=== PATIENT | male | born 1945 | race Caucasian/White ===

== ENCOUNTER → 2016-05-08 | Outpatient (CLI) | payer OTHER ==
[~2016-05-08] MED LIST: BTH25 PO; EXFORGE PO; FLM4 PO; LOVA20TA4 PO; METO100T14 PO; MULT-506 PO; NITR-5 PO; PRLSR20 PO
== END | disposition home or self-care (01) ==
LOC: C.LABMFLN 08:56
PROVIDERS: ATTEND Urology
DX: N39.0 Urinary tract infection, site not specified (principal)

== ENCOUNTER → 2016-11-20 | Outpatient (CLI) | payer OTHER | END | disposition home or self-care (01) | LOC: C.LABMFLN 10:56 | PROVIDERS: ATTEND Urology | DX: N32.0 Bladder-neck obstruction (principal) ==

== ENCOUNTER → 2017-11-27 | Outpatient (CLI) | payer OTHER | END | disposition home or self-care (01) | LOC: C.LABMFLN 13:21 | PROVIDERS: ATTEND Urology | DX: N32.0 Bladder-neck obstruction (principal); M19.90 Unspecified osteoarthritis, unspecified site ==

== ENCOUNTER 2020-07-11 05:45 | Inpatient (IN) ==
--- NOTE | 2020-06-26 14:33 | PAT Medication Instructions ---
Medication Instructions Date of Service June 26, 2020 Home Medications apixaban 5 mg tablet 5 mg PO BID beclomethasone dipropionate 40 mcg/actuation nasal HFA inhaler 2 sprays INTNAS DAILY PRN bethanechol chloride 50 mg tablet 50 mg PO QID furosemide 20 mg tablet 20 mg PO QAM omeprazole 40 mg capsule,delayed release 40 mg PO QAM diltiazem HCl 240 mg PO QAM lisinopril 10 mg PO QPM tamsulosin 0.4 mg PO PM ASK your prescriber and surgeon apixaban 5 mg tablet 5 mg PO BID DO NOT take the morning of surgery bethanechol chloride 50 mg tablet 50 mg PO QID furosemide 20 mg tablet 20 mg PO QAM Take morning of surgery With a small sip of water, OTHERWISE NOTHING TO EAT OR DRINK AFTER MIDNIGHT: beclomethasone dipropionate 40 mcg/actuation nasal HFA inhaler 2 sprays INTNAS DAILY PRN (if needed) omeprazole 40 mg capsule,delayed release 40 mg PO QAM diltiazem HCl 240 mg PO QAM Take evening before surgery beclomethasone dipropionate 40 mcg/actuation nasal HFA inhaler 2 sprays INTNAS DAILY PRN (if needed) bethanechol chloride 50 mg tablet 50 mg PO QID lisinopril 10 mg PO QPM tamsulosin 0.4 mg PO PM Other Notes If you have any questions please call us at [phone] or [phone] or [phone] or [phone]
--- NOTE | 2020-06-28 11:16 | Anesthesiology Consultation ---
Date of Service June 28, 2020 Assessment & Plan (1) Encounter for pre-operative examination: - Per assessment on 06/28: Travel screen negative. No known COVID-19 positive contacts or current COVID-19 related symptoms. Surgeon arranging preop COVID te sting. Awaiting results. - Cardiology office visit: 05/11/20: "pAF (last episode 04/2019) previously on amiodarone (July 2019-Feb 2020) started on diltiazem but stopped due to tremors; on Eliquis [id number] 2 (age, HTN) (previously on sotalol looks like only briefly (04/2019-07/2019 stopped due to episode of atrial flutter)-as per pt it did not work; h/o ZACHARY guided DCCV in 2015)..-Ok to take an extra dose diltiazem if he finds himself in AF.. If his BP starts getting too low then would cut the lisinopril in half.. If he has further symptomatic episodes of AF would consider going back on sotalol; I would not say he failed sotalol only being on it for 3 months.. Continue for now diltiazem, ACEI, lasix and eliquis" F/U 6 months recommended. - Cardiology note: 06/08/20: "OK to hold Eliquis 2 days before the procedure and then ideally restart the day after the procedure" Chart Review Chart Review: Acceptable Risk for Surgery and Patient seen in Pre Admission Testing Teaching & Discussion Pre-Anesthesia Teaching/Discussion Notes: Instructed NPO after midnight before surgery,except medications with 15 cc of water. Medication instructions provided according to the PAT guidelines. History Surgery Operation Date: 07/11/20 07:30 Proposed Procedures p Open Bladder Diverticulectomy (2nd) - Carlo Cho MD s Cystoscopy Left Ureteral Stent Insertion Placement (1st) - Carlo Cho MD Height/Weight Height: 5 ft 8 in Weight: 72.3 kg Allergies Allergy/AdvReac Type Severity Reaction Status Date / Time hydrochlorothiazide Allergy Mild Unknown Verified 06/12/20 07:32 latex Allergy Unknown Localized Verified 06/27/20 15:52 rash, skin irritation Antihistamines - Alkylamine AdvReac Mild Urinary Verified 06/27/20 15:52 retention amiodarone AdvReac Unknown Night Verified 06/27/20 15:52 sweating, tremors Medications Home Medications Medication Instructions Recorded Confirmed Last Taken apixaban 5 mg tablet 5 mg PO BID 09/28/19 06/12/20 05/27/20 09:00 beclomethasone dipropionate 40 2 sprays INTNAS DAILY PRN gm 09/28/19 06/12/20 Unknown mcg/actuation nasal HFA inhaler bethanechol chloride 50 mg tablet 50 mg PO QID tab 09/28/19 06/12/20 05/27/20 09:00 furosemide 20 mg tablet 20 mg PO QAM 09/28/19 06/12/20 05/27/20 omeprazole 40 mg capsule,delayed 40 mg PO QAM 09/28/19 06/12/20 05/27/20 release diltiazem HCl 240 mg PO QAM 05/27/20 06/12/20 05/27/20 lisinopril 10 mg PO QPM 05/27/20 06/12/20 05/26/20 tamsulosin 0.4 mg PO PM 06/12/20 06/12/20 Unknown Past Medical History Medical History (Updated 06/28/20 @ 14:04 by Alexandria Motley) Anemia Arthritis Atrial fibrillation paroxysmal, on Eliquis, follows with [facility] cardiology Bladder diverticulum BPH (benign prostatic hyperplasia) Chronic ITP (idiopathic thrombocytopenia) Stable, under surveillance by [facility] hematology Diastolic CHF, chronic GERD (gastroesophageal reflux disease) controlled Hyperlipidemia Hypertension Incomplete emptying of bladder due to benign prostatic hyperplasia Exercise / Class Metabolic Activity III < 4 Walking/Shop/Light housework Past Family History Family History Brother Prostate cancer Other Heart disease Hypertension Non Hodgkin's lymphoma Pancreatic cancer Past Surgical History Surgical History History of cholecystectomy History of colonoscopy History of esophagogastroduodenoscopy (EGD) History of tooth extraction All upper History of transurethral resection of prostate Hx of cataract surgery R/L Hx of hernia repair Hx of surgical procedure LUE cyst removal (50 years ago > benign) Past Anesthesia History No Hx of Anesthesia Complications (except PONV) and No Family Hx of Anesthesia Complications History of PONV No Hx of Motion Sickness and History of PONV (significant improvement when pretreatment is used) Social History Smoking Status: Never smoker Do You Dip or Chew Tobacco: No Hx Alcohol Use: No Hx Substance Use: No substance use type: does not use Review of Systems Rare snoring. Patient denies chest pain, shortness of breath, fever, chills, cough, wheezing, palpitations. Physical Exam Vital Signs VITALS BP 134/66 P 73 TEMP 97.5 SP02 98%RA RESP 16 PHYSICAL Full neck and c-spine range of motion. Full TMJ range of motion. TMD 3.5 finger breaths Mallampati Score 3 Dentition: upper full dentures Lungs: clear throughout to auscultation Cardiac: regular rate and rhythm, I-II/ systolic murmur Spine: normal Carotid arteries: negative bruit Extremities: no edema Testing Laboratory Results 06/28/20 11:49 06/28/20 11:45 Blood Type O Negative 06/28/20 11:49 Antibody Screen NEGATIVE 06/28/20 11:49 Electrocardiogram Date: 05/11/20 Normal sinus rhythm at 71 bpm. Inferior infarct (cited on or before 05/11/2020 per manager billing review). Cannot rule out anterior infarct, age undetermined. No significant change from 10/29/2019 per manager billing review. (Hx possible inferior infarct, cannot r/o anterior infarct noted on 05/03/19 ekg, echo done 05/04/19). Chest X-Ray Date: 06/28/20 FINDINGS: PA and lateral chest radiographs are compared to study dated 09/10/2010. The heart is top normal for projection noting atherosclerotic calci fication of the thoracic aorta. The pulmonary vasculature is noncongested. Chronic interstitial thickening is similar to previous. There is mild bibasilar scarring/atelectasis. No airspace consolidation or pleural effusion is identified. There is no pneumothorax. The skeletal structures are osteopenic. The bony thorax appears intact. Surgical clips are noted in the upper abdomen. IMPRESSION: No active disease in the chest. Echocardiogram Date: 05/04/19 LVEF 56%. No regional wall motion abnormality. Nondilated cardiac chambers. Trace to mild MR. RVSP is normal. Estimated PASP 28 mmHg. Stress Test Date: 02/07/16 Type: DSE DSE normal without wall motion abnormalities or inducible ischemia. 94% MPHR. No significant arrhythmias. Grade 1 diastolic dysfunction. Mild TR. Grade I DD. Other Testing Chest/Abdomen/Pelvis CT: 05/14/20: No acute finding. Lungs are clear. Extensive coronary artery and aortic valve calcification. There is a slight delayed right renal nephrogram caused by moderate right hydroureteronephrosis of uncertain etiology. Again seen is a markedly distended urinary bladder with presumably a large and markedly distended left-sided diverticulum. 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 > Recommend Baez catheterization and then repeat CT abdomen and pelvis using the CT urogram prot ocol.
[2020-06-28 12:33] LABS: Hematocrit (blood only) 36.2 % (42-52); Hemoglobin 11.9 g/dL (14.0-18.0); Mean Corpuscular Hemoglobin 30.5 pg (25-34); Mean Corpuscular Hgb Conc 32.9 g/dL (32-36); Mean Corpuscular Volume 92.8 fL (80-100); Mean Platelet Volume 13.1 fL (7.4-10.4); Platelet Count 125 K/uL (130-400); RDW Coefficient of Variation 14.7 % (11.5-14.5); RDW Standard Deviation 49.6 fL (36.4-46.3); White Blood Count 10.45 K/uL (4.8-10.8)
[2020-06-28 12:34] LABS: Basophils # (auto) 0.01 K/uL (0-0.2); Basophils % (auto) 0.1 %; Eosinophils # (auto) 0.03 K/uL (0-0.5); Eosinophils % (auto) 0.3 %; Immature Granulocytes # (auto) 0.04 K/uL (0.00-0.02); Immature Granulocytes % (auto) 0.4 %; Lymphocytes # (auto) 2.31 K/uL (1.2-3.4); Lymphocytes % (auto) 22.1 %; Monocytes # (auto) 2.01 K/uL (0.11-0.59); Monocytes % (auto) 19.2 %; Neutrophils # (auto) 6.05 K/uL (1.4-6.5); Neutrophils % (auto) 57.9 %; Platelet Estimate Decreased (Normal)
--- NOTE | 2020-06-28 12:35 | XRay Report ---
TWO VIEW CHEST CLINICAL HISTORY: Preoperative examination. FINDINGS: PA and lateral chest radiographs are compared to study dated 09/10/2010. The heart is top no rmal for projection noting atherosclerotic calcification of the thoracic aorta. The pulmonary vascula ture is noncongested. Chronic interstitial thickening is similar to previous. There is mild bibasilar scarring/atelectasis. No airspace consolidation or pleural effusion is identified. There is no pneum othorax. The skeletal structures are osteopenic. The bony thorax appears intact. Surgical clips are n oted in the upper abdomen. IMPRESSION: No active disease in the chest. ACT 112: Negative or not required by law. Electronically signed by: Bridger Acevedo M.D. 06/28/2020 12:33 PM
[2020-06-28 14:27] LABS: BUN Creatinine Ratio 24.3 (10-20); Calcium 8.9 mg/dl (8.5-10.1); Creatinine Clr Calc Pharmacy 62.4 ml/min; Est GFR (Non-African American) 74.2; Potassium 4.1 mmol/L (3.5-5.1)
[2020-07-11] MEDS ORDERED: LR 15ML/HR IV SCH (06:00)
[2020-07-11] MEDS ORDERED: GENTAMICIN SULFATE 160 MG in DEXTROSE 5% 100 ML IV SCH (06:00)
[2020-07-11] MEDS ORDERED: LIDOCAINE HCL 2% 2 ML VIAL/AMP(20MG/ML) INFIL ONE (06:48)
[2020-07-11] MEDS ORDERED: PROPOFOL IV EMULSION 10 MG/ML 20 ML VIAL IV ONE (06:48)
[2020-07-11] MEDS ORDERED: ROCURONIUM BROMIDE 10 MG/ML 5 ML VIAL IV ONE ×3 (06:48→11:51)
[2020-07-11] MEDS ORDERED: ONDANSETRON INJ 2 MG/ML 2 ML VIAL ONE ×2 (06:48→11:47)
[2020-07-11] MEDS ORDERED: MIDAZOLAM HCL 1 MG/ML 2ML VIAL ONE (06:48)
[2020-07-11] MEDS ORDERED: fentaNYL citrate 100 MCG/2 ML VIAL ONE ×2 (06:48→12:09)
[2020-07-11] MEDS ORDERED: fentaNYL citrate 100 MCG/2 ML VIAL IV PRN (07:26)
[2020-07-11] MEDS ORDERED: ePHEDrine sulfate 50 MG/ML AMP IV PRN (07:26)
[2020-07-11] MEDS ORDERED: PROMETHAZINE HCL 6.25 MG in SODIUM CHLORIDE 0.9% 50 ML IV PRN (07:26)
[2020-07-11] MEDS ORDERED: ONDANSETRON INJ 2 MG/ML 2 ML VIAL IV PRN ×2 (07:26→13:33)
[2020-07-11] MEDS ORDERED: ATROPINE SULFATE 0.1 MG/ML 10ML SYR IV PRN (07:26)
--- NOTE | 2020-07-11 07:35 | History & Physical Bridge Note ---
Date of Service July 11, 2020 History & Physical Bridge Note I have examined the patient, reviewed the History & Physical and in the interval since the performance of the History & Physical I have noted the following changes of clinical significance: no changes noted
[2020-07-11] MEDS ORDERED: GENTAMICIN SULFATE 40 MG/ML 2 ML VIAL ONE (08:47)
[2020-07-11] MEDS ORDERED: BUPIVACAINE 0.5 % 5 MG/1 ML MPF 30ML VIAL ONE (08:48)
[2020-07-11] MEDS ORDERED: DEXAMETHASONE SOD INJ 4 MG/ML VIAL ONE (09:17)
[2020-07-11] MEDS ORDERED: METHYLENE BLUE 0.5% 10 ML VIAL ONE (09:25)
--- NOTE | 2020-07-11 09:48 | Fluoroscopy Report ---
FL retrograde includes kub CLINICAL HISTORY: LEFT STENT INSERTION COMPARISON STUDY: IVP June 23, 2020. FLUOROSCOPY TIME: 44 seconds. FLUOROSCOPIC IMAGES: 4 FINDINGS: Fluoroscopy was provided during left retrograde exam with ureteral stent insertion. IMPRESSION: Fluoroscopy provided during left retrograde exam with ureteral stent insertion. ACT 112: Negative or not required by law. Electronically signed by: Brian Juarez M.D. 07/11/2020 9:47 AM
[2020-07-11] MEDS ORDERED: DIATRIZOATE MEGLUMINE 30% 100ML VIAL INSTIL PRN (10:52)
[2020-07-11] MEDS ORDERED: GLYCOPYRROLATE 0.2 MG/ML VIAL ONE (11:47)
[2020-07-11] MEDS ORDERED: NEOSTIGMINE METHYLSULFATE 5 MG/5 ML SYR ONE (11:47)
--- NOTE | 2020-07-11 13:19 | Anesthesiology Progress Note ---
Date of Service July 11, 2020 Anesthesia Post Procedure Vital Signs Vital Signs: Temp Pulse Pulse Resp BP BP Pulse Ox 07/11/20 13:05 36.1 C L 70 14 122/62 100 07/11/20 12:55 64 16 117/64 100 07/11/20 12:45 77 14 128/65 100 07/11/20 12:35 75 16 125/69 100 07/11/20 12:28 36.8 C 80 18 124/67 100 07/11/20 06:11 36.8 C 79 20 144/75 H 99 Pain Intensity Abdomen: Pain Intensity: 3 Transfer of Care Handoff Completed per policy Notes Mental Status: alert / awake / arousable and participated in evaluation Patient Amnestic to Procedure: Yes Nausea / Vomiting: adequately controlled Pain: adequately controlled Airway Patency, RR, SpO2: stable & adequate BP & HR: stable & adequate Hydration State: stable & adequate Anesthetic Complications: no major complications apparent and Pt Satisfied with anesthetic care
[2020-07-11] MEDS ORDERED: oxyCODONE HCL IR 5 MG TAB (IMMEDIATE RELEASE) PO PRN ×2 (13:33)
[2020-07-11] MEDS ORDERED: MoRPHine SULFATE 2 MG/ML CARP IV PRN (13:33)
[2020-07-11] MEDS ORDERED: ACETAMINOPHEN 325 MG TAB PO PRN (13:33)
[2020-07-11] MEDS ORDERED: MoRPHine SULFATE 4 MG/ML 1 ML CARP\\VIAL IV PRN (13:33)
[2020-07-11] MEDS ORDERED: GENTAMICIN CONSULT ACTIVE PRN (13:33)
[2020-07-11] MEDS ORDERED: FLUTICASONE PROPIONATE NA SPR 16 GM BTL PRN (13:57)
[2020-07-11 14:09] LABS: Hematocrit (blood only) 34.1 % (42-52); Hemoglobin 11.4 g/dL (14.0-18.0); Mean Corpuscular Hemoglobin 30.6 pg (25-34); Mean Corpuscular Hgb Conc 33.4 g/dL (32-36); Mean Corpuscular Volume 91.7 fL (80-100); Mean Platelet Volume 12.5 fL (7.4-10.4); Platelet Count 105 K/uL (130-400); RDW Coefficient of Variation 14.5 % (11.5-14.5); RDW Standard Deviation 48.5 fL (36.4-46.3); Red Blood Count 3.72 M/uL (4.7-6.1); White Blood Count 7.78 K/uL (4.8-10.8)
[2020-07-11 14:32] LABS: BUN Creatinine Ratio 23.3 (10-20); Calcium 8.2 mg/dl (8.5-10.1); Creatinine Clr Calc Pharmacy 68.6 ml/min; Est GFR (African American) 96.5; Est GFR (Non-African American) 83.3; Potassium 4.3 mmol/L (3.5-5.1)
[2020-07-11 14:50] LABS: Immature Granulocytes # (auto) 0.03 K/uL (0.00-0.02); Immature Granulocytes % (auto) 0.4 %; Lymphocytes # (auto) 0.66 K/uL (1.2-3.4); Lymphocytes % (auto) 8.5 %; Monocytes # (auto) 0.39 K/uL (0.11-0.59); Neutrophils % (auto) 86.1 %; Toxic Vacuolation 1+
[2020-07-11] MEDS: AMPICILLIN 1,000 MG in SODIUM CHLOR 0.9% AD-VAN 50 ML IV SCH ×2 (14:58→19:40)
[2020-07-11] MEDS: LACTATED RINGER'S 1,000 ML IV SCH (14:59)
[2020-07-11] MEDS: TAMSULOSIN HCL 0.4 MG CAP PO SCH (16:09)
[2020-07-11] MEDS: GENTAMICIN SULFATE IV SCH (17:15)
[2020-07-11] MEDS: DEXTROSE 5% IV SCH (17:15)
[2020-07-11] MEDS: HEPARIN SOD 5,000 UNIT/0.5 ML VIAL SQ SCH (20:09)
[2020-07-11] MEDS: lisinopril 10 MG TAB PO SCH (20:09)
[2020-07-12] MEDS: AMPICILLIN 1,000 MG in SODIUM CHLOR 0.9% AD-VAN 50 ML IV SCH ×2 (01:57→09:05)
[2020-07-12] MEDS ORDERED: COUGH DROP (SUGAR FREE) LOZ 24 LOZ/1 BOX BUCCAL ONE (01:59)
[2020-07-12] MEDS: DEXTROSE 5% IV SCH (02:01)
[2020-07-12] MEDS: GENTAMICIN SULFATE IV SCH (02:01)
[2020-07-12] MEDS: LACTATED RINGER'S 1,000 ML IV SCH ×4 (02:01→22:42)
[2020-07-12 07:34] LABS: Hematocrit (blood only) 31.3 % (42-52); Hemoglobin 10.6 g/dL (14.0-18.0); Mean Corpuscular Hemoglobin 30.5 pg (25-34); Mean Corpuscular Hgb Conc 33.9 g/dL (32-36); Mean Corpuscular Volume 89.9 fL (80-100); Platelet Count 108 K/uL (130-400); RDW Coefficient of Variation 14.6 % (11.5-14.5); Red Blood Count 3.48 M/uL (4.7-6.1); White Blood Count 9.53 K/uL (4.8-10.8)
[2020-07-12 07:52] LABS: BUN Creatinine Ratio 17.5 (10-20); Calcium 8.4 mg/dl (8.5-10.1); Creatinine Clr Calc Pharmacy 72.6 ml/min; Est GFR (African American) 98.8; Est GFR (Non-African American) 85.2; Potassium 4.5 mmol/L (3.5-5.1)
[2020-07-12 08:04] LABS: Immature Granulocytes # (auto) 0.01 K/uL (0.00-0.02); Immature Granulocytes % (auto) 0.1 %; Lymphocytes # (auto) 0.96 K/uL (1.2-3.4); Lymphocytes % (auto) 10.1 %; Monocytes # (auto) 2.23 K/uL (0.11-0.59); Monocytes % (auto) 23.4 %; Neutrophils # (auto) 6.33 K/uL (1.4-6.5); Neutrophils % (auto) 66.4 %
[2020-07-12] MEDS: FUROSEMIDE 20 MG TAB PO SCH (09:09)
[2020-07-12] MEDS: OXYBUTYNIN CHLORIDE XL 5 MG TABCR PO SCH (09:09)
[2020-07-12] MEDS: dilTIAZem HCL 240 MG CAPCR PO SCH (09:10)
[2020-07-12] MEDS: PANTOprazole 40 MG TAB PO SCH (09:10)
[2020-07-12] MEDS: HEPARIN SOD 5,000 UNIT/0.5 ML VIAL SQ SCH ×2 (09:10→20:30)
[2020-07-12] MEDS: TAMSULOSIN HCL 0.4 MG CAP PO SCH (17:20)
[2020-07-12] MEDS: lisinopril 10 MG TAB PO SCH (20:29)
--- NOTE | 2020-07-13 03:04 | Operative Report (OR) ---
DATE OF OPERATION: 07/11/2020 SURGEON: Carlo Cho MD DIRECTOR WORKERS COMPENSATION: Dr. Wood. PROCEDURE PERFORMED: Cystoscopy and left stent placement and open bladder diverticulectomy. HISTORY OF PRESENTATION: The patient is a 75-year-old male with a long history of incomplete emptying secondary to a bladder diverticulum. The patient had had BPH and subsequently a bladder neck contracture. He had managed to survive for years with occasional bladder neck dilations. Most recently, the patient went into urinary retention with right hydronephrosis secondary to significant enlargement of the bladder diverticulum. This was confirmed by CT scan. The patient was unable to void and had difficulty with intermittent self-catheterization. Because of this, an IVP was performed with an indwelling catheter that did show that he did not have right hydronephrosis with a catheter in place and did have significant bladder diverticulum. There seemed to be little choice but to offer the bladder diverticulectomy to allow the patient an option to be able to void without having an indwelling Baez catheter. Options were discussed with the patient who agreed to the procedure. DESCRIPTION OF THE PROCEDURE: The patient was given Macrobid after a positive urine culture for 10 days prior to the surgery. He was brought to the hospital where he had Venodyne stockings placed and was given preoperative gentamicin. He was taken to the operating room where general anesthesia was administered. The Venodyne stockings were connected. He was placed in dorsal lithotomy position. Cystoscopy was performed. The diverticulum was emptied and irrigated several times and then a stent was placed into the left ureter under fluoroscopy after contrast was injected into the left collecting system. With the stent in place, the patient had the cystoscope removed. He was then placed in the supine position, repositioned, shaved, and then prepped and draped in the usual sterile fashion. Subsequently, a midline incision was made from the pubic symphysis to just below the umbilicus. This incision was extended down to the subcutaneous fascia with electrocautery. The fascia in the midline was incised, the space between the two rectus muscles was incised including the transversalis and the space of Retzius was entered. The bladder was mobilized on both sides and a Pamela retractor was placed. Blunt and sharp dissection was then used to mobilize the diverticulum on the left side until eventually the ureter was seen posterior to the diverticulum. The diverticulum was mobilized anteriorly all the way to the neck of the bladder and superiorly as far as could be performed. Eventually, the diverticulum after being almost completely mobilized, was opened and then using upward retraction, it was easier to mobilize the rest of the posterior diverticulum. Eventually, a superficial incision was made around the neck of the diverticulum and the posterior part of the diverticulum, the mucosa was opened and mobilized free of any remaining attachments posteriorly, taking great care to mobilize the mucosa itself. Eventually, the entire diverticulum was delivered and sent as a specimen, leaving a small opening in the bladder. The bladder mucosa was closed then with 3-0 chromic. Then, a second layer was used with 2-0 Vicryl to close the serosa and muscularis of the bladder. After this was performed, a Baez catheter which had been placed into the bladder and previously had been irrigated with saline with gentamicin was again placed into the bladder. The rest of the wound was irrigated copiously with saline and gentamicin. There was a small 2-3 cm superficial diverticulum on the anterior wall of the bladder that was removed and closed in a similar fashion. This was also then tested by inflating the bladder with over 180 mL and there was no leaking of urine seen. There was no evidence of significant bleeding. There were several areas of bleeders that were tied off with 0 silk sutures during the course of the dissection and at the end there was one area of bleeding that was suture ligated with a 2-0 Vicryl suture ligature on the side of the bladder. At the end, there were no areas of significant bleeding seen. A 15 round JOE drain was placed to the left of the incision in the area where the diverticulum had been and sutured in place with 2-0 nylon. The wound was then closed with 2-0 PDS sutures, one from the top of the wound and one from the bottom of the wound closing the fascia, which was then tied in the middle of the incision. Subcutaneous tissue was closed with a running 2-0 Vicryl and the skin was closed with a running Monocryl suture. The wound was dressed and the patient was transferred to the recovery room in stable condition. The estimated blood loss was 200 mL. Sponge and needle count was correct. I attest to the content of the Intraoperative Record and any orders documented therein. Any exception s are noted below.
[2020-07-13 06:22] LABS: Hematocrit (blood only) 30.3 % (42-52); Hemoglobin 10.5 g/dL (14.0-18.0); Mean Corpuscular Hemoglobin 31.4 pg (25-34); Mean Corpuscular Hgb Conc 34.7 g/dL (32-36); Mean Corpuscular Volume 90.7 fL (80-100); Platelet Count 98 K/uL (130-400); RDW Coefficient of Variation 14.8 % (11.5-14.5); RDW Standard Deviation 49.2 fL (36.4-46.3); Red Blood Count 3.34 M/uL (4.7-6.1); White Blood Count 10.07 K/uL (4.8-10.8)
[2020-07-13 06:49] LABS: Eosinophils # (auto) 0.01 K/uL (0-0.5); Eosinophils % (auto) 0.1 %; Immature Granulocytes # (auto) 0.03 K/uL (0.00-0.02); Immature Granulocytes % (auto) 0.3 %; Lymphocytes # (auto) 2.04 K/uL (1.2-3.4); Lymphocytes % (auto) 20.3 %; Monocytes # (auto) 2.67 K/uL (0.11-0.59); Monocytes % (auto) 26.5 %; Neutrophils # (auto) 5.32 K/uL (1.4-6.5); Neutrophils % (auto) 52.8 %
[2020-07-13 07:03] LABS: BUN Creatinine Ratio 15.3 (10-20); Calcium 8.1 mg/dl (8.5-10.1); Creatinine Clr Calc Pharmacy 71.8 ml/min; Est GFR (African American) 98.3; Est GFR (Non-African American) 84.8; Potassium 3.7 mmol/L (3.5-5.1)
--- NOTE | 2020-07-13 08:02 | Urology Progress Note ---
Date of Service July 13, 2020 Assessment & Plan (1) Bladder diverticulum: Status post bladder diverticulectomy for massive diverticulum Recovering appropriately Continue ambulation Hep-Lock IV fluidsdrinking significant amounts of fluid Advance diet As needed gentle manual irrigation of the bladder for clot obstruction Labs stable, hemoglobin 30 Vital signs stable, nontachycardic, normotensive Admission and Anticipated Discharge Date Admission Date: July 11, 2020 Subjective Subjectively improving He was ambulatory yesterday Made several laps around the floor He feels his discomfort is improving gradually He did have one small issue this morning with sudden bladder pressure, limited drainage through the bag, irrigation by nursing revealed several small clots within the tubing, immediately after irrigation he had some relief and drained around 600 cc from his bladder. He is hungry and asking for food Does not feel that he is quite ready for discharge home yet but feels that he has made progress Physical Exam Physical Exam: Incision very appropriate, drain serosanguineous, urine clear, pink lemonade Results & Data ([facility]) Vital Signs (Past 12 Hours) Vital Signs Temp Pulse Resp BP BP Pulse Ox 07/13/20 07:22 74 16 119/64 94 07/13/20 05:45 36.9 C 81 20 129/72 92 07/12/20 21:32 37.1 C 83 16 135/63 92 07/12/20 20:26 37 C 84 16 129/65 93 PG Care Time/CCT Total # of Minutes Spent Total Time Spent with Patient: Total time spent is greater than 50% in coordination of care (as documented) at patient's floor/unit and/or counseling patient: Coding Level of Care Code 22535 Subseq Hosp Care Lvl 2 Diagnoses Bladder diverticulum N32.3
[2020-07-13] MEDS: FUROSEMIDE 20 MG TAB PO SCH (08:56)
[2020-07-13] MEDS: dilTIAZem HCL 240 MG CAPCR PO SCH (08:56)
[2020-07-13] MEDS: OXYBUTYNIN CHLORIDE XL 5 MG TABCR PO SCH (08:56)
[2020-07-13] MEDS: PANTOprazole 40 MG TAB PO SCH (08:56)
[2020-07-13] MEDS: HEPARIN SOD 5,000 UNIT/0.5 ML VIAL SQ SCH ×2 (08:57→20:41)
[2020-07-13] MEDS: TAMSULOSIN HCL 0.4 MG CAP PO SCH (16:48)
[2020-07-13] MEDS ORDERED: bisacodyL 10 MG SUPP PR STA (19:01)
[2020-07-13] MEDS: lisinopril 10 MG TAB PO SCH (20:41)
[2020-07-14 06:30] LABS: Hematocrit (blood only) 29.4 % (42-52); Hemoglobin 9.8 g/dL (14.0-18.0); Mean Corpuscular Hemoglobin 30.2 pg (25-34); Mean Corpuscular Hgb Conc 33.3 g/dL (32-36); Mean Corpuscular Volume 90.7 fL (80-100); Platelet Count 102 K/uL (130-400); RDW Coefficient of Variation 14.7 % (11.5-14.5); RDW Standard Deviation 48.8 fL (36.4-46.3); Red Blood Count 3.24 M/uL (4.7-6.1); White Blood Count 10.41 K/uL (4.8-10.8)
[2020-07-14 06:52] LABS: BUN Creatinine Ratio 23.8 (10-20); Calcium 7.8 mg/dl (8.5-10.1); Creatinine Clr Calc Pharmacy 69.4 ml/min; Est GFR (African American) 96.9; Est GFR (Non-African American) 83.6; Potassium 3.6 mmol/L (3.5-5.1)
[2020-07-14 07:10] LABS: Eosinophils # (auto) 0.04 K/uL (0-0.5); Eosinophils % (auto) 0.4 %; Immature Granulocytes # (auto) 0.06 K/uL (0.00-0.02); Immature Granulocytes % (auto) 0.6 %; Lymphocytes # (auto) 2.07 K/uL (1.2-3.4); Lymphocytes % (auto) 19.9 %; Monocytes # (auto) 2.69 K/uL (0.11-0.59); Monocytes % (auto) 25.8 %; Neutrophils # (auto) 5.55 K/uL (1.4-6.5); Neutrophils % (auto) 53.3 %
[2020-07-14] MEDS: dilTIAZem HCL 240 MG CAPCR PO SCH (08:13)
[2020-07-14] MEDS: PANTOprazole 40 MG TAB PO SCH (08:14)
[2020-07-14] MEDS: FUROSEMIDE 20 MG TAB PO SCH (08:14)
[2020-07-14] MEDS: OXYBUTYNIN CHLORIDE XL 5 MG TABCR PO SCH (08:14)
[2020-07-14] MEDS: HEPARIN SOD 5,000 UNIT/0.5 ML VIAL SQ SCH ×2 (08:14→21:37)
--- NOTE | 2020-07-14 10:33 | Urology Progress Note ---
Date of Service July 14, 2020 Assessment & Plan (1) Bladder diverticulum: -POD #3 status post Cystoscopy and left stent placement and open bladder diverticulectomy -Doing well, progressing as expected -Afebrile -Labs reviewed, Wbc and creatinine stable, Hemoglobin 9.8 -Urine culture obtained today, will follow -PO antibiotics initiated today -Continue clemens catheter -Remove JOE drain -Will consider restarting Eliquis tomorrow -Patient concerned about discharge home given he lives alone - Case management consulted to assist with discharge planning -Orders placed for PT/OT evaluation -Will continue to follow Admission and Anticipated Discharge Date Admission Date: July 11, 2020 Subjective Pt examined at bedside this AM. Awake, sitting in chair on arrival. He reports minimal pain. Denies fevers or chills. No nausea or vomiting. Tolerating diet. Ambulating without dizziness. Clemens catheter intact, draining pink tinged urine. JOE drain intact, will small amount of serosanguineous. Pt anxious to go home as he lives alone, requesting to be discharged to rehab. Chart review:Afebrile, Wbc 10.41, Hgb 9.8, Cr 0.89 Review of Systems Constitutional: as per Subjective / HPI Gastrointestinal: as per Subjective / HPI Genitourinary: + as per Subjective / HPI Physical Exam Constitutional: well developed and well nourished; no acute distress Respiratory: normal respiratory effort and able to speak in complete sentences Cardiovascular: Extremities: no calf tenderness Gastrointestinal (Abdomen): Percussion/Palpation: abdomen soft; abdomen nontender and no guarding Incisions appropriate Skin: No visible rashes or lesion. Neurologic: awake Psychiatric: Orientation: alert and oriented x 3 Genitourinary: Clemens catheter intact Results & Data ([facility]) Vital Signs (Past 12 Hours) Vital Signs Temp Pulse Resp BP Pulse Ox 07/14/20 07:05 37.3 C 73 16 114/62 92 PG Care Time/CCT Total # of Minutes Spent Total Time Spent with Patient: Total time spent is greater than 50% in coordination of care (as documented) at patient's floor/unit and/or counseling patient: Coding Level of Care Code None Diagnoses Bladder diverticulum N32.3
[2020-07-14] MEDS: NITROFURANTOIN MONOHYDRATE 100 MG CAP PO SCH ×2 (11:42→21:36)
[2020-07-14] MEDS: TAMSULOSIN HCL 0.4 MG CAP PO SCH (17:01)
[2020-07-14] MEDS: lisinopril 10 MG TAB PO SCH (21:36)
[2020-07-15 07:57] LABS: Hematocrit (blood only) 29.5 % (42-52); Mean Corpuscular Hemoglobin 29.9 pg (25-34); Mean Corpuscular Hgb Conc 33.9 g/dL (32-36); Mean Corpuscular Volume 88.3 fL (80-100); Platelet Count 116 K/uL (130-400); RDW Coefficient of Variation 14.6 % (11.5-14.5); RDW Standard Deviation 47.4 fL (36.4-46.3); Red Blood Count 3.34 M/uL (4.7-6.1); White Blood Count 8.52 K/uL (4.8-10.8)
[2020-07-15 08:06] LABS: BUN Creatinine Ratio 25.2 (10-20); Creatinine Clr Calc Pharmacy 70.2 ml/min; Est GFR (African American) 97.4; Potassium 3.6 mmol/L (3.5-5.1)
[2020-07-15 08:43] LABS: Eosinophils # (auto) 0.06 K/uL (0-0.5); Eosinophils % (auto) 0.7 %; Immature Granulocytes # (auto) 0.07 K/uL (0.00-0.02); Immature Granulocytes % (auto) 0.8 %; Lymphocytes # (auto) 1.84 K/uL (1.2-3.4); Lymphocytes % (auto) 21.6 %; Monocytes # (auto) 1.86 K/uL (0.11-0.59); Monocytes % (auto) 21.8 %; Neutrophils # (auto) 4.69 K/uL (1.4-6.5); Neutrophils % (auto) 55.1 %
[2020-07-15] MEDS: dilTIAZem HCL 240 MG CAPCR PO SCH (09:08)
[2020-07-15] MEDS: PANTOprazole 40 MG TAB PO SCH (09:08)
[2020-07-15] MEDS: NITROFURANTOIN MONOHYDRATE 100 MG CAP PO SCH ×2 (09:09→20:58)
[2020-07-15] MEDS: FUROSEMIDE 20 MG TAB PO SCH (09:09)
[2020-07-15] MEDS: OXYBUTYNIN CHLORIDE XL 5 MG TABCR PO SCH (09:09)
[2020-07-15] MEDS: HEPARIN SOD 5,000 UNIT/0.5 ML VIAL SQ SCH (09:09)
--- NOTE | 2020-07-15 10:12 | Urology Progress Note ---
Date of Service July 15, 2020 Assessment & Plan (1) Bladder diverticulum: Status post bladder diverticulectomy Recovery seems to be a very much on pace I have really encouraged him to ambulate and test himself today He is chronically on Eliquis and I will resume Eliquis this afternoon and stop heparin Presuming he does not have substantial bleeding or instability after beginning anticoagulation, he may be suitable for discharge home tomorrow afternoon or Friday - I do not believe he will require a rehab stay Admission and Anticipated Discharge Date Admission Date: July 11, 2020 Subjective Seems to have turned the corner overnight He reports that he has been ambulating without difficulty, much less trouble moving from bed to a standing position He has not no catheter related issues in the past 48 hours Increasingly thinking that he may be suitable for discharge home rather than to a rehab Physical Exam Physical Exam: Incisions appropriate Urine clear Results & Data ([facility]) Vital Signs (Past 12 Hours) Vital Signs Temp Pulse Resp BP BP Pulse Ox 07/15/20 09:06 70 113/64 07/15/20 07:30 37.1 C 65 18 125/68 97 07/14/20 23:10 37.2 C 72 14 132/55 L 94 PG Care Time/CCT Total # of Minutes Spent Total Time Spent with Patient: Total time spent is greater than 50% in coordination of care (as documented) at patient's floor/unit and/or counseling patient: Coding Level of Care Code 60669 Subseq Hosp Care Lvl 2 Diagnoses Bladder diverticulum N32.3
[2020-07-15] MEDS: TAMSULOSIN HCL 0.4 MG CAP PO SCH (17:35)
[2020-07-15] MEDS: lisinopril 10 MG TAB PO SCH (20:58)
[2020-07-15] MEDS: APIXABAN 5 MG TABLET PO SCH (20:58)
[2020-07-16 05:51] LABS: Hematocrit (blood only) 29.9 % (42-52); Hemoglobin 10.1 g/dL (14.0-18.0); Mean Corpuscular Hemoglobin 30.3 pg (25-34); Mean Corpuscular Hgb Conc 33.8 g/dL (32-36); Mean Corpuscular Volume 89.8 fL (80-100); Mean Platelet Volume 12.9 fL (7.4-10.4); Platelet Count 117 K/uL (130-400); RDW Coefficient of Variation 14.3 % (11.5-14.5); RDW Standard Deviation 47.2 fL (36.4-46.3); Red Blood Count 3.33 M/uL (4.7-6.1)
[2020-07-16 06:13] LABS: Eosinophils # (auto) 0.09 K/uL (0-0.5); Eosinophils % (auto) 1.2 %; Immature Granulocytes # (auto) 0.09 K/uL (0.00-0.02); Immature Granulocytes % (auto) 1.2 %; Lymphocytes # (auto) 1.69 K/uL (1.2-3.4); Lymphocytes % (auto) 22.2 %; Monocytes % (auto) 23.7 %; Neutrophils # (auto) 3.93 K/uL (1.4-6.5); Neutrophils % (auto) 51.7 %
[2020-07-16 06:23] LABS: BUN Creatinine Ratio 22.7 (10-20); Calcium 8.1 mg/dl (8.5-10.1); Est GFR (African American) 97.8; Est GFR (Non-African American) 84.4; Potassium 3.6 mmol/L (3.5-5.1)
--- NOTE | 2020-07-16 08:22 | Urology Progress Note ---
Date of Service July 16, 2020 Assessment & Plan (1) Bladder diverticulum: (2) Hydronephrosis, right: Status post bladder diverticulectomy for massive diverticulum with associated hydronephrosis Recovering very well Has resumed Eliquis, presuming no substantial change in his hematocrit over night, discharge home tomorrow Admission and Anticipated Discharge Date Admission Date: July 11, 2020 Subjective Continues to progress well Having an easier time ambulating Pain well controlled Baez draining well Resumed Eliquis last night, has only had 1 dose thus far but no evidence of increased bleeding Physical Exam Physical Exam: Incision appropriate Urine clear Abdomen soft Results & Data ([facility]) Vital Signs (Past 12 Hours) Vital Signs Temp Pulse Resp BP Pulse Ox 07/16/20 07:19 37.1 C 67 18 117/66 95 PG Care Time/CCT Total # of Minutes Spent Total Time Spent with Patient: Total time spent is greater than 50% in coordination of care (as documented) at patient's floor/unit and/or counseling patient: Coding Level of Care Code 86374 Subseq Hosp Care Lvl 2 Diagnoses Bladder diverticulum N32.3 Hydronephrosis, right N13.30
[2020-07-16] MEDS: OXYBUTYNIN CHLORIDE XL 5 MG TABCR PO SCH (08:47)
[2020-07-16] MEDS: dilTIAZem HCL 240 MG CAPCR PO SCH (08:47)
[2020-07-16] MEDS: FUROSEMIDE 20 MG TAB PO SCH (08:48)
[2020-07-16] MEDS: PANTOprazole 40 MG TAB PO SCH (08:48)
[2020-07-16] MEDS: NITROFURANTOIN MONOHYDRATE 100 MG CAP PO SCH ×2 (08:48→20:54)
[2020-07-16] MEDS: APIXABAN 5 MG TABLET PO SCH ×2 (08:48→20:54)
[2020-07-16] MEDS: TAMSULOSIN HCL 0.4 MG CAP PO SCH (16:54)
[2020-07-16] MEDS ORDERED: POLYETHYLENE (MIRALAX) 17 GM PACK PO PRN (20:26)
[2020-07-16] MEDS: lisinopril 10 MG TAB PO SCH (20:54)
[2020-07-17] MEDS: PANTOprazole 40 MG TAB PO SCH (07:43)
[2020-07-17] MEDS: NITROFURANTOIN MONOHYDRATE 100 MG CAP PO SCH (07:43)
[2020-07-17] MEDS: dilTIAZem HCL 240 MG CAPCR PO SCH (07:43)
[2020-07-17] MEDS: FUROSEMIDE 20 MG TAB PO SCH (07:43)
[2020-07-17] MEDS: OXYBUTYNIN CHLORIDE XL 5 MG TABCR PO SCH (07:43)
[2020-07-17] MEDS: APIXABAN 5 MG TABLET PO SCH (07:43)
--- NOTE | 2020-07-17 10:13 | Urology Progress Note ---
Date of Service July 17, 2020 Assessment & Plan (1) Bladder diverticulum: -POD #6 status post Cystoscopy and left stent placement and open bladder diverticulectomy -Doing well, progressing as expected -Remains afebrile -Urine culture with no growth -He has resumed Eliquis with no evidence of bleeding -Patient feels suitable for discharge home with home health -Will check CBC and BMP and presuming no substantial change, will discharge home later today -Plan to reassess this afternoon following labs and arrangement of home health -Pt reassessed this afternoon -Continues to progress well -Labs reviewed -Wbc and creatinine stable, Hgb 12.3. -Sodium 129 today, which is slightly lower than baseline - Asymptomatic, instructed patient on fluid management, will order BMP for follow-up appointment. -Per case management note, home health to see patient on Friday -Ok for discharge today -Home with clemens catheter Admission and Anticipated Discharge Date Admission Date: July 11, 2020 Subjective Pt examined at bedside this AM. Awake, sitting up in chair on arrival. Denies any pain or discomfort at this time. No fevers or chills. Tolerating diet, no nausea or vomiting. Ambulating without dizziness. Clemens catheter intact, draining clear, yellow urine + Flatus Pt feels suitable for discharge home with home health Chart review: Afebrile, Wbc 9.0, Hgb 12.3, Creatinine 0.99 Review of Systems Constitutional: as per Subjective / HPI Gastrointestinal: as per Subjective / HPI Genitourinary: + as per Subjective / HPI Physical Exam Constitutional: well developed and well nourished; no acute distress Respiratory: normal respiratory effort and able to speak in complete sentences; no labored breathing Cardiovascular: Extremities: no calf tenderness Gastrointestinal (Abdomen): Percussion/Palpation: abdomen soft; abdomen nontender and no guarding Incisions appropriate Skin: No visible rashes or lesions Neurologic: moves all extremities and awake; not confused Psychiatric: Orientation: alert, oriented x 3 and cooperative Genitourinary: Clemens catheter intact Results & Data ([facility]) Vital Signs (Past 12 Hours) Vital Signs Temp Pulse Resp BP BP Pulse Ox 07/17/20 07:40 36.8 C 74 18 126/70 97 07/16/20 23:20 36.9 C 67 16 148/72 H 97 PG Care Time/CCT Total # of Minutes Spent Total Time Spent with Patient: Total time spent is greater than 50% in coordination of care (as documented) at patient's floor/unit and/or counseling patient: Coding Level of Care Code 02276 Subseq Hosp Care Lvl 2 Diagnoses Bladder diverticulum N32.3
[2020-07-17 11:25] LABS: Eosinophils # (auto) 0.04 K/uL (0-0.5); Eosinophils % (auto) 0.4 %; Hematocrit (blood only) 35.9 % (42-52); Hemoglobin 12.3 g/dL (14.0-18.0); Immature Granulocytes # (auto) 0.09 K/uL (0.00-0.02); Lymphocytes # (auto) 1.69 K/uL (1.2-3.4); Lymphocytes % (auto) 18.8 %; Mean Corpuscular Hemoglobin 30.8 pg (25-34); Mean Corpuscular Hgb Conc 34.3 g/dL (32-36); Mean Platelet Volume 12.8 fL (7.4-10.4); Monocytes # (auto) 2.22 K/uL (0.11-0.59); Monocytes % (auto) 24.7 %; Neutrophils # (auto) 4.96 K/uL (1.4-6.5); Neutrophils % (auto) 55.1 %; Platelet Count 164 K/uL (130-400); RDW Coefficient of Variation 14.3 % (11.5-14.5); RDW Standard Deviation 47.4 fL (36.4-46.3); Red Blood Count 3.99 M/uL (4.7-6.1)
[2020-07-17 12:05] LABS: BUN Creatinine Ratio 14.5 (10-20); Calcium 8.5 mg/dl (8.5-10.1); Creatinine Clr Calc Pharmacy 62.4 ml/min; Est GFR (Non-African American) 74.2; Potassium 3.4 mmol/L (3.5-5.1)
[2020-07-17] MEDS: TAMSULOSIN HCL 0.4 MG CAP PO SCH (16:59)
--- NOTE | 2020-07-20 09:06 | Discharge Summary (DS) ---
REASON FOR DISCHARGE: Surgery for bladder diverticulum. HISTORY OF PRESENTATION AND HOSPITAL COURSE: The patient is a 75-year-old male known to me who was able to void until recently went into retention with a right obstruction from this large bladder diverticulum. A Baez catheter was placed and he failed several voiding trials. Ultimately, it was determined that he needed surgery to remove this large bladder diverticulum. DESCRIPTION OF HOSPITAL COURSE: The patient was admitted on the day of the procedure and he had a bladder diverticulectomy that went without complication. Postoperatively, he was sent to the floor. He did have a couple of days the first 48 hours where the catheter became obstructed with some clots, but the clots were irrigated and the catheter was draining fine. He ultimately had his urine clear. He was given Dulcolax suppository and the first several days he was not passing gas, but he then had a bowel movement after the 48 hours and was able to ambulate. He still had his drain in. The urine was still somewhat cloudy. The patient was not comfortable going home secondary to the pain and the fact that he lives alone and was unable to get up and we did initially explore the option of sending him to a rehab facility. However, in about 6 days his urine had cleared. He was ambulating more comfortably. The catheter was left in place. The drain was discharged and he was discharged to home on an oral antibiotic to follow up with a cystogram for catheter removal. Throughout the course of his hospital, it should be noted that his hematocrit remained stable, slightly below 38, 29 was the lowest got and the patient was restarted back on Eliquis without significant bleeding.
== END 2020-07-17 18:08 | disposition home health service (06) | DRG 654 ==
LOC: ASU 05:45 → 3W 12:24